=== PATIENT | male | born 1990 | race Caucasian/White ===

== ENCOUNTER 2018-02-27 17:59 | Emergency (ER) | payer MEDICAID ==
[~2018-02-27] VITALS: Ht 177.8 cm; Wt 68.1 kg
[2018-02-27 19:36] LABS: BASOPHILS # (AUTO) 0.1 X10'3 (0-0.2); BASOPHILS % (AUTO) 0.8 % (0-1); EOSINOPHILS % (AUTO) 0.1 % (0-6); HEMATOCRIT 40.7 % (42.0-52.0); HEMOGLOBIN 13.7 g/dl (14.0-17.9); LYMPHOCYTES % (AUTO) 21.5 % (21-51); MEAN CORPUSCULAR HEMOGLOBIN 31.3 PG (27.0-31.0); MEAN CORPUSCULAR HGB CONC 33.8 % (33.0-36.5); MEAN CORPUSCULAR VOLUME 92.8 FL (78-98); MEAN PLATELET VOLUME 7.4 FL (7.4-10.4); MONOCYTES # (AUTO) 0.9 X10'3 (0-0.9); MONOCYTES % (AUTO) 9.5 % (2-12); NEUTROPHILS # (AUTO) 6.4 X10'3 (1.8-7.7); NEUTROPHILS % (AUTO) 68.1 % (42-75); PLATELET COUNT 281 X10'3 (140-440); RED BLOOD COUNT 4.38 X10'6 (4.70-6.10); WHITE BLOOD COUNT 9.4 X10'3 (4.5-11.0)
[2018-02-27 19:52] LABS: ALANINE AMINOTRANSFERASE 63 U/L (12-78); ALBUMIN 3.7 G/DL (3.4-5.0); ALBUMIN/GLOBULIN RATIO 1.2 (1.1-1.5); ALKALINE PHOSPHATASE 98 IU/L (46-116); ANION GAP 10 (8-16); ASPARTATE AMINO TRANSFERASE 51 U/L (10-37); BILIRUBIN,TOTAL 0.4 MG/DL (0.1-1.0); BLOOD UREA NITROGEN 18 MG/DL (7-18); BUN/CREATININE RATIO 19.8 (5.4-32.0); CALCIUM 9.1 MG/DL (8.5-10.1); CHLORIDE 105 MMOL/L (99-107); CREATININE 0.91 MG/DL (0.60-1.10); GLUCOSE 99 MG/DL (70-104); POTASSIUM 3.9 MMOL/L (3.5-5.1); SODIUM 142 MMOL/L (135-145); TOTAL CARBON DIOXIDE 27.1 MMOL/L (24-32); TOTAL PROTEIN 6.9 G/DL (6.4-8.2); eGFR > 90 ML/MIN
[2018-02-27] MEDS ORDERED: diphenhydrAMINE 50 mg/ml inj IM ONE (19:55)
[2018-02-27] MEDS ORDERED: LORazepam 2 mg/ml vial IM ONE (19:55)
[2018-02-27] MEDS ORDERED: haloperidol lactate 5mg/ml inj IM ONE ×2 (19:55→19:59)
[2018-02-27] MEDS ORDERED: LORazepam 2 mg/ml vial ONE (19:59)
[2018-02-27] MEDS ORDERED: diphenhydrAMINE 50 mg/ml inj ONE (20:00)
[2018-02-27 20:16] LABS: ETHANOL < 0.010 GM/DL (0.0-0.010)
[2018-02-27] MEDS ORDERED: OLAN2.5T3 (20:28)
[2018-02-27] MEDS ORDERED: OLAN5TAB3 (20:30)
[2018-02-28 03:25] LABS: CLARITY,URINE CLEAR (Clear); COLOR,URINE YELLOW (Yellow); GLUCOSE, URINE NEGATIVE (Neg); KETONES,URINE TRACE mg/dl (Neg); LEUKOCYTE ESTERASE ,URINE NEGATIVE (Neg); NITRITES, URINE NEGATIVE (Neg); OCCULT BLOOD,URINE NEGATIVE (Neg); PH,URINE 6.5 (4.8-8.0); PROTEIN,URINE TRACE mg/dl (Neg); UROBILINOGEN,URINE 0.2 E.U/dL (0.2-1.0)
[2018-02-28 03:29] LABS: URINE AMPHETAMINE SCREEN NEGATIVE (Neg); URINE BARBITUATE SCREEN NEGATIVE (Neg); URINE BENZODIAZEPINES SCREEN NEGATIVE (Neg); URINE CANNABINOID SCREEN POSITIVE (Neg); URINE COCAINE SCREEN NEGATIVE (Neg); URINE METHADONE SCREEN NEGATIVE (Neg); URINE OPIATE SCREEN NEGATIVE (Neg); URINE PHENCYCLIDINE SCREEN NEGATIVE (Neg)
[2018-02-28 03:35] LABS: UA COLLECTION TYPE URINAL
[2018-02-28 03:39] LABS: BACTERIA,URINE 1+ /HPF (Neg); RBC,URINE NONE SEEN /HPF (0-2); SQUAMOUS EPITHELIAL CELL,UR FEW /LPF (FEW); WBC,URINE 0-4 /HPF (0-4)
[2018-02-28 03:40] LABS: HYALINE CASTS 0-3 /LPF (NEGATIVE); MUCUS STRANDS MODERATE /LPF (Neg)
[2018-02-28] MEDS ORDERED: LORazepam 2 mg/ml vial IM PRN (06:10)
[2018-02-28] MEDS ORDERED: LORazepam 1 MG tablet PO PRN (06:10)
[2018-02-28] MEDS: OLANZapine 2.5MG tablet PO SCH ×2 (10:45→13:21)
[2018-02-28 20:11] VITALS: BP 106/61
== END 2018-02-28 19:50 ==
LOC: ER 18:00
DX: F23 Brief psychotic disorder (principal); F41.9 Anxiety disorder, unspecified; F31.9 Bipolar disorder, unspecified
CPT/HCPCS: 36415; 80053; 80305; 80320; 81001; 84443; 85025; 96372; 99291; J1200; J1630; J2060

== ENCOUNTER 2018-12-11 16:11 | Emergency (ER) | payer MEDICAID ==
[~2018-12-11] VITALS: Ht 180.3 cm; Wt 75.0 kg
[~2018-12-11 16:11] MED LIST: OLAN5TAB3
[2018-12-11 16:38] VITALS: BP 126/78
[2018-12-11] MEDS ORDERED: LORazepam 1 MG tablet PO ONE (16:50)
== END 2018-12-11 17:19 | disposition home or self-care (01) ==
LOC: ER 16:11
DX: F41.9 Anxiety disorder, unspecified (principal); F31.9 Bipolar disorder, unspecified; F25.9 Schizoaffective disorder, unspecified; G47.00 Insomnia, unspecified; Z79.899 Other long term (current) drug therapy
CPT/HCPCS: 99284

== ENCOUNTER 2019-02-12 15:38 | Emergency (ER) | payer MEDICAID ==
[~2019-02-12] VITALS: Ht 177.8 cm; Wt 68.0 kg
[2019-02-12 15:43] VITALS: BP 112/75
[2019-02-12] MEDS ORDERED: AMOX500C2 PO (16:13)
[2019-02-12] MEDS ORDERED: acetaminophen 325mg tablet PO ONE (16:15)
== END 2019-02-12 16:32 | disposition home or self-care (01) ==
LOC: ER 15:38
DX: K04.7 Periapical abscess without sinus (principal); F41.9 Anxiety disorder, unspecified; F31.9 Bipolar disorder, unspecified; Z79.899 Other long term (current) drug therapy
CPT/HCPCS: 99283

== ENCOUNTER 2019-02-28 09:50 | Emergency (ER) | payer MEDICAID ==
[~2019-02-28] VITALS: Ht 177.8 cm; Wt 72.7 kg
[2019-02-28 09:56] VITALS: BP 116/74
[2019-02-28] MEDS ORDERED: NAPR-56 PO (09:58)
[2019-02-28] MEDS ORDERED: PENI250T2 PO (09:58)
== END 2019-02-28 10:02 | disposition home or self-care (01) ==
LOC: ER 09:51
DX: K08.89 Other specified disorders of teeth and supporting structures (principal); K03.81 Cracked tooth; F41.9 Anxiety disorder, unspecified; F31.9 Bipolar disorder, unspecified; Z79.899 Other long term (current) drug therapy
CPT/HCPCS: 99283

== ENCOUNTER 2019-12-29 08:24 | Emergency (ER) | payer MEDICAID, MEDICARE ==
[~2019-12-29] VITALS: Ht 180.3 cm; Wt 77.9 kg
[2019-12-29 08:27] VITALS: BP 126/72
[2019-12-29] MEDS ORDERED: AMOX500C2 PO (08:44)
[2019-12-29] MEDS ORDERED: ondansetron 4mg rapidly disintigrating tab PO ONE (08:45)
[2019-12-29] MEDS ORDERED: acetaminophen 325mg tablet PO ONE (08:45)
[2019-12-29] MEDS ORDERED: ketorolac trometh inj. 60 MG/2 ML VIAL IM ONE (08:45)
[2019-12-29] MEDS ORDERED: amoxicillin 250mg capsule PO ONE (08:45)
== END 2019-12-29 09:18 | disposition home or self-care (01) ==
LOC: ER 08:24
DX: K08.89 Other specified disorders of teeth and supporting structures (principal); F41.9 Anxiety disorder, unspecified; F31.9 Bipolar disorder, unspecified; Z59.0 Homelessness; Z79.899 Other long term (current) drug therapy
CPT/HCPCS: 96372; 99284; J1885